=== PATIENT | male | born 1985 | race African-American/Black ===

== ENCOUNTER 2016-10-15 17:01 | Emergency (ER) | payer OTHER ==
[~2016-10-15] VITALS: Ht 177.8 cm; Wt 95.3 kg
[~2016-10-15 17:01] MED LIST: ALBUTEROL SULF8.5 GM INH; BACTRIM-DS1 EA ORAL; CEPHALEXIN500 MG ORAL; CIPROFLOXACIN500 M2 ORAL; CYCLOBENZAPRINE10 MG ORAL; FLOVENT HFA10.6 GM INH; KEFLEX500 MG ORAL; LEVAQUIN750 MG ORAL; NITROFURANTOIN100 M2 ORAL; NKM; PHENAZOPYRIDIN100 MG ORAL; PHENAZOPYRIDIN200 MG ORAL; PROAIR HFA8.5 GM INH; VIBRAMYCIN100 MG ORAL
[2016-10-15 17:43] LABS: APPEARANCE,URINE CLEAR; KETONES,URINE NEGATIVE (NEGATIVE); LEUKOCYTE ESTERASE ,URINE 2+ (NEGATIVE); NITRITE,URINE NEGATIVE (NEGATIVE); PH,URINE 7 (4.5-8.0); PROTEIN,URINE NEGATIVE (NEGATIVE); UROBILINOGEN,URINE NORMAL MG/DL (0.0-1.0)
[2016-10-15 17:52] LABS: RBC,URINE 0-2 /HPF (0 - 0); WBC,URINE 15-20 /HPF (0 - 0)
[2016-10-15 17:53] LABS: BACTERIA,URINE OCCASIONAL /HPF; SQUAMOUS EPITHELIAL CELL,UR OCCASIONAL /LPF (NONE/OCC)
[2016-10-15] MEDS ORDERED: NITROFURANTOIN100 M2 ORAL (18:43)
[2016-10-15] MEDS ORDERED: PROAIR HFA8.5 GM INH (18:43)
[2016-10-15 18:46] VITALS: BP 135/89
[2016-10-15 18:47] VITALS: BP 135/89
--- NOTE | 2016-10-18 14:03 | Emergency Room Report ---
History of Present Illness General Chief Complaint: Male Urogenital Problems Source: Patient Present Illness HPI Patient is a 30-year-old male who presented after having increased difficulty with urination. Patient reported having increased dysuria as well as urinary frequency patient had prior history of urinary tract infections. These had been recurrent. Patient had not been recently on antibiotics. Patient had no fever. He had not been vomiting. He denies any penile discharge or unprotected sex. Allergies: Coded Allergies: PENICILLINS (Unverified Allergy, Unknown, 12/17/14) Patient History Reviewed Nursing Documentation: PMH: Agreed, PSxH: Agreed Nursing Documentation-PMH Past Medical History: No History, Except For Hx Asthma: Yes Hx Gastrointestinal Problems: No - UTI Review of Systems All Other Systems: negative except mentioned in HPI Physical Exam Vital Signs Date Time Temp Pulse Resp B/P Pulse Ox O2 Delivery O2 Flow Rate FiO2 10/15/16 17:04 98.1 80 15 144/92 98 Room Air General Appearance: well appearing, no apparent distress, alert, GCS 15 Head: normocephalic, atraumatic ENT: hearing grossly normal, normal voice Neck: full range of motion, supple Respiratory: lungs clear, normal breath sounds, no respiratory distress, speaking full sentences Gastrointestinal: normal inspection, non tender Musculoskeletal: no calf tenderness Neurologic: normal inspection, alert, oriented x3, responsive, language and literature division chair III-XII nml as tested, normal gait Psychiatric: mood/affect normal Skin: no rash Medical Decision Making Diagnostic Impression: Primary Impression: UTI (urinary tract infection) ER Course Patient presented for dysuria. Differential diagnosis included was not limited to appendicitis, urinary tract infection, pelvic inflammatory disease, urethritis, herpes among others. Patient's benign exam and does not appear to require any imaging. Urinalysis showed evidence of urinary tract infection. Patient was given prescription for oral antibiotics.The patient is advised to follow up with primary care doctor in 1-2 days. Patient is advised to return if any worsening condition or if any changes in status that are concerning. Last Vital Signs Date Time Temp Pulse Resp B/P Pulse Ox O2 Delivery O2 Flow Rate FiO2 10/15/16 18:47 98.1 70 13 135/89 98 Room Air Status: improved Disposition: HOME, SELF-CARE Condition: Stable Scripts Nitrofurantoin Monohyd/M-Cryst* (MACROBID 100 MG*) 100 Mg Capsule 100 MG ORAL EVERY 12 HOURS, #10 CAP Prov: Fredy Herrera 10/15/16 Albuterol Sulfate* (PROAIR HFA*) 8.5 Gm Hfa.aer.ad 1 PUFF INH Q6H, #8.5 GM 0 Refills Prov: Fredy Herrera 10/15/16 Referrals: CASSANDRA CAMPBELL,REFERRING (PCP) Patient Instructions: Urinary Tract Infection Fredy Herrera Oct 18, 2016 14:03
== END 2016-10-15 18:48 | disposition home or self-care (01) ==
LOC: EMR 17:26
DX: N39.0 Urinary tract infection, site not specified (principal); Z88.0 Allergy status to penicillin; J45.909 Unspecified asthma, uncomplicated
CPT/HCPCS: 81003; 87086; 99284

== ENCOUNTER 2016-10-25 17:15 | Emergency (ER) | payer OTHER ==
[2016-10-25] VITALS (8 sets, daily range): BP systolic 131–146; BP diastolic 71–88
[~2016-10-25] VITALS: Ht 177.8 cm; Wt 97.5 kg
--- NOTE | 2016-10-25 18:16 | Emergency Room Report ---
History of Present Illness General Chief Complaint: Headache Source: Patient Present Illness HPI The patient presents with post-micturition headaches. He states that these are the worse headache that he's ever felt. There are frontal and also behind eyes. They are almost incapacitating. No aura. They start with pounding when he is urinating. They last 30 min to 1 hour. Most times, they are relieved with motrin. He is concerned about how much motrin he is taking. These HAs have been going on for the past 7 days. Every time he urinates now, he has these. Pain is severe, the worst he has ever felt 10/10, not radiating. He has recurrent UTIs. He was most recently treated with macrobid. No dysuria , though, he is straining with urinating somewhat. He had a stricture (not certain where) which was treated several years ago. Denies fever, chills, NVD or other change in bowels. No flank pain. In the patient he had HAs that were termed migraines. He was treated with Maxalt at that time. He had a CT which was read as "normal" many years ago. No family history of aneurisms. 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 Reviewed Nursing Documentation: PMH: Agreed, PSxH: Agreed Nursing Documentation-PMH Hx Asthma: Yes Hx Gastrointestinal Problems: No - UTI Review of Systems All Other Systems: negative except mentioned in HPI Physical Exam Vital Signs Date Time Temp Pulse Resp B/P Pulse Ox O2 Delivery O2 Flow Rate FiO2 10/25/16 17:19 98.4 76 14 146/87 97 Room Air Sp02 EP Interpretation: reviewed, normal General Appearance: well appearing, no apparent distress, GCS 15 Head: normocephalic, atraumatic Eyes: bilateral eye EOMI, bilateral eye PERRL, bilateral eye normal inspection ENT: moist mucus membranes Neck: supple Respiratory: chest non-tender, lungs clear, normal breath sounds Cardiovascular #1: regular rate, rhythm Cardiovascular #2: 2+ radial (R) Gastrointestinal: normal inspection, normal bowel sounds, non tender, no mass, non-distended Musculoskeletal: back normal, gait/station normal, normal range of motion Neurologic: alert, oriented x3, vessel scrapper helper III-XII nml as tested, motor strength/tone normal, DTRs symmetric, sensory intact, cerebellar normal, normal gait, speech normal Psychiatric: mood/affect normal Skin: normal inspection, warm/dry Medical Decision Making Diagnostic Impression: Primary Impression: Headache Qualified Codes: G44.59 - Other complicated headache syndrome Additional Impressions: UTI (urinary tract infection) Qualified Codes: N30.00 - Acute cystitis without hematuria H/O urethral stricture ER Course Patient presents with post micturition headaches which are severe. DDx: aneurism, atypical migraine, vascular, related to UTI/bacteriuria amongst others. No evidence of meningitis. Extremely disconcerting history as presents post some straining. Potential life threatening vascular phenomenon. Evaluation with labs, UA and CT angiogram. Treated here. Labs with UTI. Antibiotics begun. CT angiogram negative. Still with headache. Discussed need for further evaluation by PMD as well as follow up with urologist. Patient stable for outpatient observation and treatment. Laboratory Tests Test 10/25/16 18:10 10/25/16 18:30 Urine Color Pale yellow Urine Appearance Slightly cloudy Urine pH 7 (4.5-8.0) Urine Specific [place] 1.010 (1.005-1.035) Urine Protein 1+ (NEGATIVE) H Urine Glucose (UA) Negative (NEGATIVE) Urine Ketones Negative (NEGATIVE) Urine Occult Blood 1+ (NEGATIVE) H Urine Nitrite Negative (NEGATIVE) Urine Bilirubin Negative (NEGATIVE) Urine Urobilinogen Normal MG/DL (0.0-1.0) Urine Leukocyte Esterase 2+ (NEGATIVE) H Urine RBC 2-4 /HPF (0 - 0) H Urine WBC 20-30 /HPF (0 - 0) H Urine Squamous Epithelial Cells Occasional /LPF Urine Bacteria Few /HPF (NONE) White Blood Count 8.2 K/UL (4.8-10.8) Red Blood Count 5.13 M/UL (4.70-6.10) Hemoglobin 15.0 G/DL (14.2-18.0) Hematocrit 46.5 % (42.0-52.0) Mean Corpuscular Volume 91 FL (80-99) Mean Corpuscular Hemoglobin 29.3 PG (27.0-31.0) Mean Corpuscular Hemoglobin Concent 32.3 G/DL (32.0-36.0) Red Cell Distribution Width 12.0 % (11.6-14.8) Platelet Count 315 K/UL (150-450) Mean Platelet Volume 7.1 FL (6.5-10.1) Neutrophils (%) (Auto) 52.8 % (45.0-75.0) Lymphocytes (%) (Auto) 30.5 % (20.0-45.0) Monocytes (%) (Auto) 10.0 % (1.0-10.0) Eosinophils (%) (Auto) 3.9 % (0.0-3.0) H Basophils (%) (Auto) 2.8 % (0.0-2.0) H Erythrocyte Sedimentation Rate 12 MM/HR (0-15) Prothrombin Time 11.4 SEC (9.30-11.50) Prothrombin Time INR 1.1 (0.9-1.1) PTT 28 SEC (23-33) Sodium Level 140 mEQ/L (135-145) Potassium Level 3.9 mEQ/L (3.4-4.9) Chloride Level 98 mEQ/L (98-107) Carbon Dioxide Level 27 mEQ/L (20-30) Anion Gap 15 (5-15) Blood Urea Nitrogen 11 mg/dL (7-23) Creatinine 1.1 mg/dL (0.7-1.2) Estimate Glomerular Filtration Rate > 60 mL/min (>60) Glucose Level 87 mg/dL (74-106) Calcium Level 9.2 mg/dL (8.6-10.2) Total Bilirubin 0.2 mg/dL (0.0-1.2) Aspartate Amino Transferase (AST) 32 U/L (5-40) Alanine Aminotransferase (ALT) 61 U/L (3-41) H Alkaline Phosphatase 110 U/L (40-129) Total Protein 7.9 g/dL (6.6-8.7) Albumin 4.5 g/dL (3.5-5.2) Globulin 3.4 g/dL Albumin/Globulin Ratio 1.3 (1.0-2.7) CT/MRI/US Diagnostic Results CT/MRI/US Diagnostic Results : Imaging Test Ordered: CTA head Impression normal - no aneurism Laboratory Tests Test 10/25/16 18:10 10/25/16 18:30 Urine Color Pale yellow Urine Appearance Slightly cloudy Urine pH 7 (4.5-8.0) Urine Specific [place] 1.010 (1.005-1.035) Urine Protein 1+ (NEGATIVE) H Urine Glucose (UA) Negative (NEGATIVE) Urine Ketones Negative (NEGATIVE) Urine Occult Blood 1+ (NEGATIVE) H Urine Nitrite Negative (NEGATIVE) Urine Bilirubin Negative (NEGATIVE) Urine Urobilinogen Normal MG/DL (0.0-1.0) Urine Leukocyte Esterase 2+ (NEGATIVE) H Urine RBC 2-4 /HPF (0 - 0) H Urine WBC 20-30 /HPF (0 - 0) H Urine Squamous Epithelial Cells Occasional /LPF Urine Bacteria Few /HPF (NONE) White Blood Count 8.2 K/UL (4.8-10.8) Red Blood Count 5.13 M/UL (4.70-6.10) Hemoglobin 15.0 G/DL (14.2-18.0) Hematocrit 46.5 % (42.0-52.0) Mean Corpuscular Volume 91 FL (80-99) Mean Corpuscular Hemoglobin 29.3 PG (27.0-31.0) Mean Corpuscular Hemoglobin Concent 32.3 G/DL (32.0-36.0) Red Cell Distribution Width 12.0 % (11.6-14.8) Platelet Count 315 K/UL (150-450) Mean Platelet Volume 7.1 FL (6.5-10.1) Neutrophils (%) (Auto) 52.8 % (45.0-75.0) Lymphocytes (%) (Auto) 30.5 % (20.0-45.0) Monocytes (%) (Auto) 10.0 % (1.0-10.0) Eosinophils (%) (Auto) 3.9 % (0.0-3.0) H Basophils (%) (Auto) 2.8 % (0.0-2.0) H Erythrocyte Sedimentation Rate 12 MM/HR (0-15) Prothrombin Time 11.4 SEC (9.30-11.50) Prothrombin Time INR 1.1 (0.9-1.1) PTT 28 SEC (23-33) Sodium Level 140 mEQ/L (135-145) Potassium Level 3.9 mEQ/L (3.4-4.9) Chloride Level 98 mEQ/L (98-107) Carbon Dioxide Level 27 mEQ/L (20-30) Anion Gap 15 (5-15) Blood Urea Nitrogen 11 mg/dL (7-23) Creatinine 1.1 mg/dL (0.7-1.2) Estimate Glomerular Filtration Rate > 60 mL/min (>60) Glucose Level 87 mg/dL (74-106) Calcium Level 9.2 mg/dL (8.6-10.2) Total Bilirubin 0.2 mg/dL (0.0-1.2) Aspartate Amino Transferase (AST) 32 U/L (5-40) Alanine Aminotransferase (ALT) 61 U/L (3-41) H Alkaline Phosphatase 110 U/L (40-129) Total Protein 7.9 g/dL (6.6-8.7) Albumin 4.5 g/dL (3.5-5.2) Globulin 3.4 g/dL Albumin/Globulin Ratio 1.3 (1.0-2.7) Status: improved Disposition: HOME, SELF-CARE Condition: Scripts Phenazopyridine Hcl* (PYRIDIUM*) 200 Mg Tablet 200 MG ORAL THREE TIMES A DAY, #9 TAB 0 Refills Prov: Kenan Robertson M.D. 10/25/16 Tramadol Hcl* (ULTRAM*) 50 Mg Tablet 50 MG ORAL Q6H Y for For Pain, #10 TAB 0 Refills Prov: Kenan Robertson M.D. 10/25/16 Ibuprofen* (MOTRIN*) 600 Mg Tablet 600 MG ORAL Q6H Y for For Pain, #20 TAB Prov: Kenan Robertson M.D. 10/25/16 Cephalexin* (KEFLEX*) 500 Mg Capsule 500 MG ORAL Q6H, #28 CAP 0 Refills Prov: Kenan Robertson M.D. 10/25/16 Referrals: CASSANDRA CAMPBELL,REFERRING (PCP) Kenan Robertson M.D. Oct 25, 2016 18:16
[2016-10-25 18:36] LABS: BASOPHILS % (AUTO) 2.8 % (0.0-2.0); EOSINOPHILS % (AUTO) 3.9 % (0.0-3.0); LYMPHOCYTES % (AUTO) 30.5 % (20.0-45.0); MEAN CORPUSCULAR HEMOGLOBIN 29.3 PG (27.0-31.0); MEAN CORPUSCULAR HGB CONC 32.3 G/DL (32.0-36.0); MEAN CORPUSCULAR VOLUME 91 FL (80-99); MEAN PLATELET VOLUME 7.1 FL (6.5-10.1); NEUTROPHILS % (AUTO) 52.8 % (45.0-75.0); PLATELET COUNT 315 K/UL (150-450); RED BLOOD COUNT 5.13 M/UL (4.70-6.10); WHITE BLOOD COUNT 8.2 K/UL (4.8-10.8)
[2016-10-25 18:39] LABS: APPEARANCE,URINE SLIGHTLY CLOUDY; KETONES,URINE NEGATIVE (NEGATIVE); LEUKOCYTE ESTERASE ,URINE 2+ (NEGATIVE); NITRITE,URINE NEGATIVE (NEGATIVE); PH,URINE 7 (4.5-8.0); PROTEIN,URINE 1+ (NEGATIVE); UROBILINOGEN,URINE NORMAL MG/DL (0.0-1.0)
[2016-10-25 18:46] LABS: INR 1.1 (0.9-1.1); PROTHROMBIN TIME 11.4 SEC (9.30-11.50)
[2016-10-25 18:49] LABS: BACTERIA,URINE FEW /HPF; SQUAMOUS EPITHELIAL CELL,UR OCCASIONAL /LPF (NONE/OCC); WBC,URINE 20-30 /HPF (0 - 0)
[2016-10-25] MEDS ORDERED: cefTRIAXone 1 GM in NS 55 ML IVPB ONE (19:15)
[2016-10-25 19:19] LABS: ALANINE AMINOTRANSFERASE 61 U/L (3-41); ALBUMIN/GLOBULIN RATIO 1.3 (1.0-2.7); ASPARTATE AMINO TRANSFERASE 32 U/L (5-40); CALCIUM 9.2 mg/dL (8.6-10.2); CARBON DIOXIDE 27 mEQ/L (20-30); CREATININE 1.1 mg/dL (0.7-1.2); GLOMERULAR FILTRATION RATE > 60 mL/min (>60); HEMOLYSIS 4; TOTAL PROTEIN 7.9 g/dL (6.6-8.7)
[2016-10-25 19:20] LABS: ANION GAP 15 (5-15); CHLORIDE 98 mEQ/L (98-107); POTASSIUM 3.9 mEQ/L (3.4-4.9); SODIUM 140 mEQ/L (135-145)
[2016-10-25 19:41] LABS: ERYTHROCYTE SEDIMENTATION RATE 12 MM/HR (0-15)
[2016-10-25] MEDS ORDERED: TRAMADOL HCL50 MG ORAL (22:25)
[2016-10-25] MEDS ORDERED: PHENAZOPYRIDIN200 MG ORAL (22:25)
[2016-10-25] MEDS ORDERED: KEFLEX500 MG ORAL (22:25)
[2016-10-25] MEDS ORDERED: IBUPROFEN600 MG ORAL (22:25)
--- NOTE | 2016-10-26 08:38 | Diagnostic Imaging Report ---
Indication: Migraine headache every time patient urinates Technique: Precontrast spiral acquisitions obtained through the brain. IV administration nonionic contrast. Arterial and delayed phase images obtained through the brain. Multiplanar and 3-D angiograph reconstructions were generated. Total dose length product 316 mGycm. CTDIvol(s) 70, 16, 132, 54, 54 mGy Comparison: None Findings: The contrast images demonstrate no evidence of acute intracranial hemorrhage nor edema. No mass effect or midline shift. Normal crabtree-white differentiation. Intact calvarium. Visualized orbits and sinuses are unremarkable. Angiographic images demonstrate normal caliber intracranial arteries. There is equivocally a patent right posterior communicating artery. There is equivocally patent anterior commuting artery. No left posterior commuting artery is demonstrated. No evidence of aneurysm or vascular malformation. Delayed phase images demonstrate no unusual contrast enhancement. Impression: Negative This agrees with the preliminary interpretation provided overnight by Dr. Ferreira The CT scanner at [facility] is accredited by the [employer] and the scans are performed using protocols designed to limit radiation exposure to as low as reasonably achievable to attain images of sufficient resolution adequate for diagnostic evaluation. Brain
== END 2016-10-25 22:33 | disposition home or self-care (01) ==
LOC: EMR 17:35
DX: G44.59 Other complicated headache syndrome (principal); N30.00 Acute cystitis without hematuria; Z88.0 Allergy status to penicillin; F17.200 Nicotine dependence, unspecified, uncomplicated; J45.909 Unspecified asthma, uncomplicated
CPT/HCPCS: 36415; 70496; 80053; 81003; 85025; 85610; 85651; 85730; 87086; 96360; 99284; J0696; Q9967

== ENCOUNTER 2016-11-05 10:05 | Emergency (ER) | payer SELFPAY ==
[~2016-11-05] VITALS: Ht 177.8 cm; Wt 96.2 kg
[~2016-11-05 10:05] MED LIST changes: +IBUPROFEN600 MG ORAL; +TRAMADOL HCL50 MG ORAL
[2016-11-05 10:49] LABS: APPEARANCE,URINE CLEAR; KETONES,URINE NEGATIVE (NEGATIVE); LEUKOCYTE ESTERASE ,URINE 1+ (NEGATIVE); NITRITE,URINE NEGATIVE (NEGATIVE); PH,URINE 7 (4.5-8.0); PROTEIN,URINE 1+ (NEGATIVE); UROBILINOGEN,URINE NORMAL MG/DL (0.0-1.0)
[2016-11-05 11:01] LABS: BACTERIA,URINE FEW /HPF; SQUAMOUS EPITHELIAL CELL,UR OCCASIONAL /LPF (NONE/OCC)
[2016-11-05] MEDS ORDERED: Azithromycin 250mg tab ORAL ONE (11:15)
[2016-11-05] MEDS ORDERED: Lidocaine 1% MPF 10mg/ml 5ml ONE (11:17)
[2016-11-05] MEDS ORDERED: DOXYCYCLINE MO100 MG ORAL (11:20)
[2016-11-05] MEDS ORDERED: Lidocaine 1% MPF 10mg/ml 5ml IM ONE (11:30)
[2016-11-05 12:28] VITALS: BP 144/75
--- NOTE | 2016-11-05 14:23 | Emergency Room Report ---
History of Present Illness General Chief Complaint: Male Urogenital Problems Source: Patient Present Illness HPI 30-year-old male presents ED for evaluation. States that he's been drinking dysuria symptoms. Denies any discharge. States that he was recently seen here and was prescribed antibiotics for presumed UTI. States he completed the prescription but symptoms persist. Notes pain with urination. Burning, 12/07. Nonradiating. States he does experience recent unprotected sexual encounters. Patient states he was seen here a few months prior to that as well as for same symptoms and was prescribed antibiotics and treated for presumed STI. Patient does document history of urethral stricture several years ago and had it dilated. No other aggravating or relieving factors. Denies any other associated symptom Allergies: Coded Allergies: PENICILLINS (Unverified Allergy, Unknown, 12/17/14) Patient History Past Medical History: asthma Past Surgical History: none Pertinent Family History: none Social History: Denies: alcohol use, drug use, smoking Immunizations: UTD Reviewed Nursing Documentation: PMH: Agreed, PSxH: Agreed Nursing Documentation-PMH Hx Asthma: Yes Hx Gastrointestinal Problems: No - UTI Review of Systems All Other Systems: negative except mentioned in HPI Physical Exam Vital Signs Date Time Temp Pulse Resp B/P Pulse Ox O2 Delivery O2 Flow Rate FiO2 11/05/16 10:12 99.0 75 14 144/75 96 Room Air Sp02 EP Interpretation: reviewed, normal General Appearance: no apparent distress, alert, GCS 15, non-toxic Head: normocephalic, atraumatic Eyes: bilateral eye PERRL, bilateral eye normal inspection ENT: hearing grossly normal, normal pharynx, no angioedema, normal voice Neck: full range of motion, supple/symm/no masses Respiratory: chest non-tender, lungs clear, normal breath sounds, speaking full sentences Cardiovascular #1: regular rate, rhythm, no edema Cardiovascular #2: 2+ carotid (R), 2+ carotid (L), 2+ radial (R), 2+ radial (L) , 2+ dorsalis pedis (R), 2+ dorsalis pedis (L) Gastrointestinal: normal bowel sounds, non tender, soft, non-distended, no guarding, no rebound Rectal: deferred Genitourinary: normal inspection, no CVA tenderness Musculoskeletal: back normal, gait/station normal, normal range of motion, non- tender Neurologic: alert, oriented x3, responsive, motor strength/tone normal, sensory intact, speech normal Psychiatric: judgement/insight normal, memory normal, mood/affect normal, no suicidal/homicidal ideation Reflexes: 3+ bicep (R), 3+ bicep (L), 3+ tricep (R), 3+ tricep (L), 3+ knee (R) , 3+ knee (L) Skin: normal color, no rash, warm/dry, well hydrated Lymphatic: no adenopathy Medical Decision Making Diagnostic Impression: Primary Impression: Abnormal urogenital findings Additional Impression: H/O urethral stricture ER Course Hospital Course 30-year-old male presents to ED complaining of dysuria Differential diagnoses include: UTI, cystitis, pyelonephritis Clinical course Patient placed on stretcher. After initial history and physical I ordered UA UA noted to be unremarkable. Given patient's discomfort and dysuria I will treat as presumed STI. The last 2 visits patient urine cultures grew negative bacteria. There is a history of unprotected sex. However patient does also have history of urethral stricture that should be evaluated given rocephin/azithromycin in ED. will give referral to urology Diagnosis - abnormal urogenital findings, h/o urethral stricture Stable and discharged home with prescriptions for Rx doxycycline. Instructed to followup with PMD. Return to ED if symptoms recur or worsen Labs Test 11/05/16 10:28 Urine Color Pale yellow Urine Appearance Clear Urine pH 7 (4.5-8.0) Urine Specific [place] 1.010 (1.005-1.035) Urine Protein 1+ (NEGATIVE) Urine Glucose (UA) Negative (NEGATIVE) Urine Ketones Negative (NEGATIVE) Urine Occult Blood 1+ (NEGATIVE) Urine Nitrite Negative (NEGATIVE) Urine Bilirubin Negative (NEGATIVE) Urine Urobilinogen Normal MG/DL (0.0-1.0) Urine Leukocyte Esterase 1+ (NEGATIVE) Urine RBC 2-4 /HPF (0 - 0) Urine WBC 5-10 /HPF (0 - 0) Urine Squamous Epithelial Cells Occasional /LPF Urine Bacteria Few /HPF (NONE) Last Vital Signs Date Time Temp Pulse Resp B/P Pulse Ox O2 Delivery O2 Flow Rate FiO2 11/05/16 12:28 99.0 14 144/75 96 Room Air 11/05/16 10:12 75 Status: improved Disposition: HOME, SELF-CARE Condition: Stable Scripts Doxycycline Monohydrate* (DOXYCYCLINE MONOHYDRATE*) 100 Mg Capsule 100 MG ORAL Q12H, #14 CAP 0 Refills Prov: SRINIVAS ELDRIDGE M.D. 11/05/16 Referrals: Glenn Garcia M.D., Sameer M.D. Patient Instructions: Urethritis, Adult SRINIVAS ELDRIDGE M.D. Nov 05, 2016 14:23
== END 2016-11-05 11:30 | disposition home or self-care (01) ==
LOC: EMR 10:42
DX: R82.90 Unspecified abnormal findings in urine (principal); Z88.0 Allergy status to penicillin; J45.909 Unspecified asthma, uncomplicated
CPT/HCPCS: 81003; 96372; 99283; J0696